=== PATIENT | male | born 1955 | race Caucasian/White ===

== ENCOUNTER 2016-08-04 22:12 | Observation (INO) | payer OTHER ==
[~2016-08-04] VITALS: Ht 182.9 cm; Wt 97.8 kg
--- NOTE | ~2016-08-04 | ECH ---
Transthoracic Echocardiography Report (TTE) Demographics Patient Name ESTHELA STRONG Date of Study 08/05/2016 Patient Number [id number] Visit Number [id number] Date of 1955 Room Number 427 Accession Number [id number] Gender Male Age 60 year(s) Referring Aruna Rubalcava Medical Research Scientist Lori Bell [facility] Physician Physician Interpreting King Derrick Mayer MD Contaminated Land Consultant Physician Supervising Ordering Physician King Derrick Mayer MD, MD/P Nurse Stress Hospital Educator Conclusions Summary Technically fair exam, Definity utilized to evaluate apex. The estimated left ventricular ejection fraction is 60-65%. The left ventricle is normal in size . Diastolic assessment reveals normal relaxation. No significant valvular abnormalities. Procedure Type of Study TTE procedure:Echo Complete w Contrast SF. Procedure Date Date: 08/05/2016 Start: 11:50 AM Technical Quality: Fair due to lung interference. Indications:Chest pain and Coronary artery disease. Appropriate Use Criteria: 9 Contrast Medium: Definity. Amount - 2 ml Height: 72 inches Weight: 215 pounds BSA: 2.2 m Rhythm: Sinus bradycardia HR: 55 bpm BP: 98/55 mmHg M-Mode/2D Measurements LV Diastolic Dimension: 4.98 cm LV Systolic Dimension: 3.93 cm LV Septum Diastolic: 0.95 cm LV PW Diastolic: 0.98 cm AO Root Dimension: 3.11 cm Cardiac Output: 3.15 l/min LA Dimension: 3.95 cm Cardiac Index: 1.43 l/min*m LA volume index: 15 ml/m LVOT: 2.4 cm RV Base: 3 cm LVOT VTI: 12.68 cm LV Stroke volume: 57.33 ml LV Stroke volume index: 26.06 ml/m Doppler Measurements AV Mean Gradient: 4.51 mmHg MV Peak E-Wave: 0.69 m/s LVOT Peak Velocity: 0.59 m/s MV Peak A-Wave: 0.67 m/s AV Area (Continuity):1.8 cm MV P1/2t: 64.9 msec TR Velocity:2.31 m/s TR Gradient:21.42 mmHg MV Deceleration Time: 256.9 msec Estimated RAP:5 mmHg MV Area (PHT): 3.39 cm Estimated RVSP: 26 mmHg PV Peak Velocity: 1 m/s PV Peak Gradient: 3.99 mmHg Estimated PASP: 26.42 mmHg RA Area: 8.56 cm Findings Left Ventricle The left ventricle is normal in size . Diastolic assessment reveals normal relaxation. Right Ventricle Right ventricle not well visualized. Left Atrium Normal left atrial size. Right Atrium Normal right atrial size. Mitral Valve Normal mitral valve structure and function. Trivial mitral regurgitation by color Doppler. Aortic Valve The aortic valve was not well imaged. Tricuspid Valve Normal tricuspid valve structure and function. Mild tricuspid regurgitation by color Doppler. Pulmonic Valve The pulmonic valve is not well visualized. Pericardial Effusion No evidence of pericardial effusion. Miscellaneous Visualized portions of the aortic root and ascending aorta appear normal in size. Pleural Effusion No evidence of pleural effusion. Contractility Score LV regional wall motion:(0-Non visualized 1-Normal 2-Hypokinesis 3-Akinesis 4-Dyskinesis 5-Aneurysm) Signature
--- NOTE | 2016-08-05 02:42 | ER ---
ADMIT: 08/04/2016 RM/LOC: ER [facility] MR#: [id number] [address] [address] LAI STRONG [address] [place] [address] Emergency Room Report SEX: M AGE: 60 : 1955 DATE: 08/04/2016 TIME: 2212 hours. Please refer to my T-sheet for complete H and P. Briefly, the patient is a 60-year-old, who comes with chest pain started an hour ago, substernal, feels just like when he had a heart attack in the past and felt short of breath. He had a CABG about a year ago and stents prior to that. Has high cholesterol, high blood pressure. He said the pain is now gone after nitroglycerin. He has not taken aspirin. PHYSICAL EXAMINATION: VITAL SIGNS: Blood pressure here is 126/73, pulse 96, respirations 22, temperature 95.4, sat 97%. GENERAL: He is in no acute distress. HEENT: Grossly normal. LUNGS: Clear. HEART: Regular. ABDOMEN: Soft. SKIN: No rash. NEUROLOGIC: Alert and oriented. Nonfocal. EMERGENCY DEPARTMENT COURSE: Chest x-ray was negative. EKG is sinus rhythm, rate 98, no changes. CBC was normal except white count 10.2. Chemistries normal except glucose 197. His cardiac enzymes were negative. He remained stable. Pain free. We gave him aspirin and Maalox here. I talked to Dr. Walden and Afsaneh. They will admit him to the hospital. ASSESSMENT: Chest pain with known coronary artery disease, pain free. Enzymes negative. PLAN: Admit for rule out. Tulio Solorzano MD/ rena JOB #: [id number] CC: Tulio Solorzano MD, Attending Physician Lai Valdovinos MD, Family Physician
[2016-08-05] MEDS ORDERED: ASA CHILDREN'S81 MG PO (18:21)
[2016-08-05] MEDS ORDERED: COREG DPS6.25 MG PO (18:22)
[2016-08-05] MEDS ORDERED: PROTONIX40 MG PO (18:22)
[2016-08-05] MEDS ORDERED: PLAVIX75 MG PO (18:22)
[2016-08-05] MEDS ORDERED: ZESTRIL DPS2.5 MG PO (18:22)
[2016-08-05] MEDS ORDERED: MAALOX DPS30 ML PO (18:23)
[2016-08-05] MEDS ORDERED: TYLENOL DPS325 MG PO (18:23)
[2016-08-05] MEDS ORDERED: LIPITOR80 MG PO (18:23)
[2016-08-05] MEDS ORDERED: NITROSTAT0.4 MG SL (18:24)
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
--- NOTE | 2016-08-22 15:33 | CO ---
ADMIT: 08/05/2016 RM/LOC: 427 [facility] MR#: [id number] [address] [address] ESTHELA STRONG [address] [place] [address] Consultation SEX: M AGE: 60 : 1955 DATE OF CONSULTATION: 08/05/2016 ATTENDING PHYSICIAN: Lai Valdovinos CONSULTING PHYSICIAN: Derrick Sawant MD REASON FOR CONSULTATION: Chest pain, known coronary artery disease. HISTORY OF PRESENT ILLNESS: The patient presented to the ER last night, 08/04/2016, with an acute onset of chest pain that started at 9 p.m., approximately 1 hour before presentation. He described it as a substernal pain that was constant. He rated it as a 10/10 in severity. He described the pain as pleuritic. Associated symptoms included nausea and dizziness. He denied shortness of breath or diaphoresis. He stated that this chest pain felt like the same pain he had in the past when he had a heart attack. The patient does have a positive history for prior stent and coronary artery bypass graft 1 year ago. Upon presentation, the patient was given nitro and chest pain went away within about 30 minutes. The patient's chest pain and associated symptoms did not re-present. His vitals in the ER were stable. His EKG in the ER revealed normal sinus rhythm. The patient was seen today and has no chest pain or associated symptoms. He has no complaints today. He does report that his chest has mild tenderness. Cardiovascular risk factor reveals a 20-pack year smoking history in which he quit smoking in 2007. He does report high blood pressure, high cholesterol. He is not a diabetic. The patient also has a positive history for peripheral vascular disease in both legs requiring a stent and angioplasty. The patient does report history of a heart attack. The patient has had prior stress test done before. When talking about the stress test, he expressed concern about re- doing one because he feels like his first heart attack was caused by the stress test. PAST MEDICAL HISTORY: Significant illnesses: Hypertension, dyslipidemia, coronary artery disease, history of myocardial infarction, peripheral vascular disease. PAST SURGICAL HISTORY: Coronary artery bypass graft, coronary stents, right and left hand surgery, stent and angioplasty done on right and left legs for peripheral vascular disease. MEDICATIONS: 1. Aspirin 81 mg p.o. daily. 2. Protonix 40 mg p.o. daily. 3. Carvedilol 6.25 mg p.o. b.i.d. 4. Clopidogrel 75 mg p.o. daily. 5. Lisinopril 2.5 mg p.o. daily. 6. Lipitor 80 mg p.o. daily. ALLERGIES: PENICILLIN. ADMIT: 08/05/2016 RM/LOC: 427 [facility] MR#: [id number] [address] [address] ESTHELA STRONG [address] [place] [address] Consultation SEX: M AGE: 60 : 1955 FAMILY HISTORY: The patient denies family history of heart disease, diabetes, cancer, or stroke. SOCIAL HISTORY: The patient does not follow a special diet. He does report caffeine use and estimated 100 ounces per day. He denies alcohol or drug use. OCCUPATION: diet technician registered. MARITAL STATUS: . REVIEW OF SYSTEMS: GENERAL: Denies fatigue, fever, chills, sweats, rash, or weight loss. EYES: Denies double vision, blurred vision, cataracts, or glaucoma. ENT: Denies hearing loss or problems with nose, mouth or throat. PULMONARY: Denies cough, sputum production, asthma, emphysema or bronchitis. Denies snoring loudly, wakefulness at night, or fatigue upon awakening. GASTROINTESTINAL: Denies difficulty swallowing. No change in bowel habits. Denies dark or bloody stools. Positive for heartburn and acid reflux. Negative for dysphagia, hiatal hernia, stomach ulcer, rectal bleeding, gallbladder problems, or liver disease. GENITOURINARY: Denies dysuria, hematuria, nocturia, urinary tract infection, or kidney stones. Denies history of renal insufficiency or failure. MUSCULOSKELETAL: Denies history of arthritis or gout. Denies muscle or joint pains. ENDOCRINE: Denies history of thyroid dysfunction or diabetes. HEMATOLOGIC: Denies history of anemia, easy bruising, or cancer. NEUROLOGIC: Denies chronic headaches, dizziness, syncope, stroke, seizures or numbness or tingling. PSYCHIATRIC: Denies history of mental illness or feelings of depression. PHYSICAL EXAMINATION: VITAL SIGNS: Temperature afebrile, pulse 73, respiratory rate 15, blood pressure 98/65, and O2 sat 91% on room air. GENERAL: Alert and oriented x3. No acute distress. NECK: Absent JVD. HEART: Regular rate and rhythm. No murmurs, clicks, rubs, or gallops. LUNGS: Clear to auscultation. ABDOMEN: Positive bowel sounds. Soft and nontender. EXTREMITIES: Absent edema. LABORATORY DATA: Sodium 139, potassium 3.7, chloride 104, CO2 of 29, BUN 10, creatinine 0.9, and glucose 94. White blood cell count 10, hemoglobin 13.8. Magnesium 2.0. LDL 80 and HDL 27. CK-MB 1.7, troponin less than 0.015. BNP ADMIT: 08/05/2016 RM/LOC: 427 [facility] MR#: [id number] [address] [place] [id number] ESTHELA STRONG [address] [place] [address] Consultation SEX: M AGE: 60 : 1955 less than 5. Chest x-ray negative study. EKG normal sinus rhythm, old inferior infarct, probable incomplete right bundle branch block. ASSESSMENT: 1. Chest pain. 2. Coronary artery disease. 3. Hyperlipidemia. PLAN: With only 1 episode, we will do echo and ambulate. If it looks okay, he could go home today as his troponin and EKG are normal. If further symptoms in future, would need an ischemic eval. He refuses stress test, so would need a heart cath. Continue home meds. IVAN Parmar Student / Derrick Sawant MD / rena JOB #: [id number] CC: Lai Valdovinos, Attending Physician Lai Valdovinos, Family Physician
== END 2016-08-05 16:00 | disposition home or self-care (01) ==
LOC: ER 22:12 → 4PCU 08-05 00:06
PROVIDERS: ADMIT Family Medicine
DX: R07.89 Other chest pain (principal); I25.10 Atherosclerotic heart disease of native coronary artery without angina pectoris; G47.33 Obstructive sleep apnea (adult) (pediatric); E78.5 Hyperlipidemia, unspecified; K21.9 Gastro-esophageal reflux disease without esophagitis; F41.9 Anxiety disorder, unspecified; I25.2 Old myocardial infarction; Z95.5 Presence of coronary angioplasty implant and graft; Z79.82 Long term (current) use of aspirin; Z79.899 Other long term (current) drug therapy; Z88.0 Allergy status to penicillin; Z88.8 Allergy status to other drugs, medicaments and biological substances; Z87.891 Personal history of nicotine dependence